=== PATIENT | male | born 1985 | race Two or more races ===

== ENCOUNTER 2017-11-13 16:38 | Emergency (ER) | payer MEDICAID ==
[~2017-11-13] VITALS: Ht 167.6 cm; Wt 83.9 kg
[2017-11-13 16:42] VITALS: Ht 167.6 cm; Wt 83.9 kg
[2017-11-13 17:51] LABS: BASOPHIL % 0.3 % (0-2); PLATELET COUNT 256 x10^3mcL (130-400); RED CELL DISTRIBUTION WIDTH 12.8 % (11.5-14.5)
[2017-11-13 18:03] LABS: CALCIUM 9.2 mg/dL (8.5-10.1); CARBON DIOXIDE 28.3 mmol/L (21-32); CHLORIDE SERUM 101 mmol/L (98-107); CREATININE SERUM 1.1 mg/dL (0.7-1.3); GFR1 > 60 mL/min; GLUCOSE SERUM 95 mg/dL (74-106); POTASSIUM SERUM 3.7 mmol/L (3.5-5.1); SODIUM SERUM 130 mmol/L (136-145)
[2017-11-13 18:08] LABS: ALBUMIN 4.2 g/dL (3.4-5.0); ALKALINE PHOSPHATASE 67 U/L (46-116); ALT/SGPT 33 U/L (16-63); AST/SGOT 16 U/L (15-37); BILIRUBIN TOTAL 0.36 mg/dL (0.20-1.00); TOTAL PROTEIN, SERUM 7.5 g/dL (6.4-8.2)
[2017-11-13 18:39] LABS: AMPHETAMINE QUAL UR NONE DETECTED (See below)
[2017-11-13 20:10] VITALS: BP 137/80
== END 2017-11-13 20:10 | disposition home or self-care (01) ==
LOC: ED 16:38
PROVIDERS: Emergency Medicine
DX: I10 Essential (primary) hypertension (principal); R20.2 Paresthesia of skin; R51 Headache; R11.0 Nausea
CPT/HCPCS: 83880; J1885; J2765; J3010; Q0092

== ENCOUNTER 2018-03-26 19:02 | Emergency (ER) | payer MEDICAID ==
[~2018-03-26] VITALS: Ht 170.2 cm; Wt 86.2 kg
[2018-03-26 19:06] VITALS: Ht 170.2 cm; Wt 86.2 kg
[2018-03-26 21:39] LABS: BASOPHIL % 0.4 % (0-2); PLATELET COUNT 256 x10^3mcL (130-400); RED CELL DISTRIBUTION WIDTH 13.7 % (11.5-14.5)
[2018-03-26 21:52] LABS: CALCIUM 9.5 mg/dL (8.5-10.1); CARBON DIOXIDE 26.1 mmol/L (21-32); CHLORIDE SERUM 101 mmol/L (98-107); CREATININE SERUM 1.1 mg/dL (0.7-1.3); GFR1 > 60 mL/min; GLUCOSE SERUM 96 mg/dL (74-106); POTASSIUM SERUM 4.1 mmol/L (3.5-5.1); SODIUM SERUM 137 mmol/L (136-145)
[2018-03-26 21:56] LABS: ALBUMIN 4.7 g/dL (3.4-5.0); ALKALINE PHOSPHATASE 62 U/L (46-116); ALT/SGPT 91 U/L (16-63); AST/SGOT 28 U/L (15-37); BILIRUBIN TOTAL 0.4 mg/dL (0.20-1.00); CHOLESTEROL 153 mg/dL (<200); LIPASE 211 IU/L (73-393); TOTAL PROTEIN, SERUM 7.9 g/dL (6.4-8.2); TRIGLYCERIDES 173 mg/dL (<150)
[2018-03-26 22:01] LABS: CHOLESTEROL/HDL RATIO 6.4; HDL CHOLESTEROL 24 mg/dL (40-60)
[2018-03-26 22:06] LABS: T3 TOTAL 1.43 ng/mL
[2018-03-26 22:15] LABS: FREE T4 0.96 ng/dL (0.76-1.46); FREE THYROXINE INDEX 3.3 ug/dL (1.4-4.5); T4(THYROXINE) 9.1 ug/dL (4.7-13.3)
[2018-03-27 00:10] VITALS: BP 140/92
== END 2018-03-27 00:10 | disposition home or self-care (01) ==
LOC: ED 19:02
PROVIDERS: Specialist
DX: M54.9 Dorsalgia, unspecified (principal); I10 Essential (primary) hypertension
CPT/HCPCS: 36415; 82962; 83880; 84439; Q0092

== ENCOUNTER 2018-06-05 18:50 | Emergency (ER) | payer MEDICAID ==
[~2018-06-05] VITALS: Ht 170.2 cm; Wt 89.4 kg
[2018-06-05 19:44] VITALS: Ht 170.2 cm; Wt 89.4 kg
[2018-06-05 22:07] VITALS: BP 148/91
== END 2018-06-05 22:07 | disposition home or self-care (01) ==
LOC: ED 18:50
DX: J06.9 Acute upper respiratory infection, unspecified (principal); G43.909 Migraine, unspecified, not intractable, without status migrainosus; I10 Essential (primary) hypertension
CPT/HCPCS: J1885; J2765

== ENCOUNTER 2018-10-27 17:44 | Emergency (ER) | payer MEDICAID ==
[~2018-10-27] VITALS: Ht 170.2 cm; Wt 85.7 kg
[2018-10-27 17:49] VITALS: Ht 170.2 cm; Wt 85.7 kg
[2018-10-27 18:15] VITALS: BP 127/70
== END 2018-10-27 18:38 | disposition home or self-care (01) ==
LOC: ED 17:44
DX: I10 Essential (primary) hypertension (principal)